=== PATIENT | female | born 2000 | race Hispanic/Latino ===

== ENCOUNTER 2022-05-15 15:20 | Emergency (ER) | payer MEDICAID, SELFPAY ==
[2022-05-15] MEDS ORDERED: Lidocaine 1% PF 5 ML VIAL ONE (16:23)
== END 2022-05-15 17:05 | disposition home or self-care (01) ==
LOC: CSHERS 15:20
DX: N75.1 Abscess of Bartholin's gland (principal)
CPT/HCPCS: 56420